=== PATIENT | female | born 1940 | race Two or more races ===

== ENCOUNTER 2024-08-24 15:36 | Emergency (ER) | payer OTHER ==
[~2024-08-24] VITALS: Ht 152.4 cm; Wt 68.0 kg
[2024-08-24 16:00] VITALS: BP 120/65; PULSE 96; RESP 18; O2SAT 96
[2024-08-24] MEDS ORDERED: BACDST PO (16:47)
== END 2024-08-24 18:51 | disposition home or self-care (01) ==
LOC: ER 15:55
DX: L03.115 Cellulitis of right lower limb (principal); L03.116 Cellulitis of left lower limb